=== PATIENT | female | born 1935 | race Caucasian/White ===

== ENCOUNTER 2016-08-22 12:12 | Emergency (ER) | payer MEDICARE, OTHER ==
[2016-08-22] MEDS ORDERED: CEFTRIAXONE 1 GM VIAL ONE (14:35)
[2016-08-22] MEDS ORDERED: SODIUM CHLORIDE 0.9% 100 ML IV ONE (14:35)
== END 2016-08-22 15:48 | disposition home or self-care (01) ==
LOC: ER 12:12
DX: N39.0 Urinary tract infection, site not specified (principal); D64.9 Anemia, unspecified; F03.90 Unspecified dementia, unspecified severity, without behavioral disturbance, psychotic disturbance, mood disturbance, and anxiety
CPT/HCPCS: 36415; 71010; 80053; 81001; 82274; 82553; 82947; 83605; 84484; 85025; 87040; 87088; 93005; 96365; 99285; J0696